=== PATIENT | female | born 1955 | race Caucasian/White ===

== ENCOUNTER 2025-02-02 01:21 | Inpatient (IN) | payer OTHER ==
[2025-02-02] VITALS (9 sets, daily range): BP systolic 108–155; BP diastolic 43–73; PULSE 55–75; RESP 14–19; TEMP 97.9–98.3; O2SAT 95–98
[~2025-02-02] VITALS: Ht 160 cm; Wt 98.3 kg
--- NOTE | 2025-02-02 06:07 | DVHHPRES ---
History of Present Illness Resident Creating Document: IAN AMOS RESIDENT History of Present Illness Patient is a 69-year-old female with past medical history of hypertension, diabetes, GERD, vertigo, cold air induced asthma, nephrolithiasis, who comes in due to syncope. According to the patient, yesterday on 02/01/2025 she had 1 shot of vodka and then took her p.m. medications including labetalol 100 mg, shortly after she was urinating in the bathroom when she got up from the toilet seat she felt dizzy and passed out, hit the back of her head in the bathroom. Per patient she had loss of consciousness for few sec. Denies any prodromal symptoms, notes feeling a headache and nausea after regaining consciousness. Patient notes she had similar symptoms 2-3 years ago but she did not go to the hospital at the time. On review of systems patient is complaining only of rhinorrhea and constipation. Head CT was performed at [facility] which showed no a cute intracranial process and some chronic microvascular ischemic changes. Past Medical History hypertension, diabetes, GERD, vertigo, cold air induced asthma, nephrolithiasis Past Surgical History section x2, hysterectomy, gastric bypass surgery Past Social History Smoking: Denies Alcohol: Occasionally Drugs: Uses marijuana once in a while, denies using any other drugs Allergy: Sulfa drugs, penicillin, erythromycin Review of Systems Constitutional: No: Fever, Chills, Sweats, Weakness, Malaise, Other Eyes: No: Pain, Vision change, Conjunctivae inflammation, Eyelid inflammation, Other, Redness ENT: Nose discharge; No: Ear pain, Ear discharge, Nose pain, Nose congestion, Mouth pain, Mouth swelling, Throat pain, Throat swelling, Other Respiratory: No: Cough, Dry, Shortness of breath, SOB with excertion, Wheezing, Hemoptysis, Pleuritic Pain, Sputum, Wheezing, Other Cardiovascular: No: Chest Pain, Palpitations, Orthopnea, Paroxysmal Noc. Dyspn ea, Edema, Lt Headedness, Other Gastrointestinal: Constipation; No: Nausea, Vomiting, Abdominal Pain, Diarrhea, Melena, Hematochezia, Other Genitourinary: No Dysuria, No Frequency, No Incontinence, No Hematuria, No Retention, No Other Musculoskeletal: No: other, neck pain, shoulder pain, arm pain, back pain, hand pain, leg pain, foot pain Skin: No: Rash, Lesions, Jaundice, Bruising, Other Neurological: No: Weakness, Numbness, Incoordination, Change in speech, Confusion, Seizures, Other Medications Current Medications Medications Dose Ordered Sig/Ish Route Start Time Stop Time Status Last Admin Dose Admin Acetaminophen 325 mg Q4HP PRN PO 02/02/25 04:30 UNV Enoxaparin Sodium 40 mg DAILY SC 02/02/25 10:00 UNV Exam Vital Signs Vital Signs Date Time Temp Pulse Resp B/P (MAP) Pulse Ox O2 Delivery O2 Flow Rate FiO2 02/02/25 05:08 98.3 75 18 126/73 (90) 98 98.3 02/02/25 05:08 Room Air* 0 21 General Appearance: Alert, Oriented X3, Cooperative, No acute distress, Other (Dry mucous membranes) HEENT: Atraumatic, PERRLA, EOMI Respiratory: Normal air movement Cardiovascular: Regular rate, Normal S1, Normal S2 Abdominal: Normal bowel sounds, Soft, No tenderness Extremities: No edema Neuro: Normal speech, Sensation intact Psych/Mental Status: Mental status NL, Mood NL Assessment/Plan Assessment/Plan Syncope, orthostatic versus situational versus secondary to polypharmacy Rule out CVA - head CT at [facility] largely unremarkable except chronic ischemic changes - ordered carotid Doppler - ordered echocardiogram - ordered orthostatic vitals Hypertension Diabetes - ordered Hb A1c - currently holding home antihypertensives (labetalol 100 mg b.i.d., hydrochlorothiazide q.a.m., losartan q.a.m.) as blood pressure on the softer side Constipation, slow transit - Colace 100 mg b.i.d. as needed History of hypothyroidism - ordered serum TSH PUD prophylaxis: protonix 40mg DVT prophylaxis: Levonox 40mg Goals of care: Full code, discussed for >16 minutes on 02/02/2025 Plan discussed with patient Plan discussed with Dr. Salmeron Plan discussed with: Patient, Other (RN) My Orders Orders - IAN AMOS RESIDENT Procedure Category Date Status Time Admit ADMIT 02/02/25 Transmitted 04:18 Allergies LEOPOLDO 02/02/25 In Process 04:18 Code Status CODE 02/02/25 Transmitted 04:18 Acetaminophen Tablet PHA 02/02/25 Logged (Tylenol Tablet) 04:30 Enoxaparin Sodium PHA 02/02/25 Logged (Lovenox) 10:00 Fall Risk Precautions LEOPOLDO 02/02/[address] 04:18 Cardiac DIET 02/02/25 Transmitted Diet-2gna,Lofat,Lochol Breakfast Pt Request For Service PT 02/02/25 Logged 04:18 * Swallow Request ST 02/02/25 Transmitted 04:18 Carotid Duplx W Color US 02/02/25 Logged DOP 04:18 Condition: Unstable LEOPOLDO 02/02/25 In Process 04:18 Notify Md Of Changes LEOPOLDO 02/02/25 In Process From Base 04:18 Electrocardigram EKG 02/02/25 Logged 04:18 Echo 2d Mode Cardiac US 02/02/25 Logged DOP 04:18 Chest Two Views XY 02/02/25 Logged Routine 04:18 Complete Blood Count LAB 02/02/25 Logged 04:18 Comprehensive LAB 02/02/25 Logged Metabolic Panel 04:18 Urinalysis LAB 02/02/25 Logged 04:18 Drug Screen LAB 02/02/25 Logged 04:18 Covid19 Antigen Pamela LAB 02/02/25 Logged Rapid Influenza A&B LAB 02/02/25 Logged 04:18 B-Type Natriuretic LAB 02/02/25 Logged Peptide 04:23 Folate (Folic Acid) LAB 02/02/25 Logged 04:23 Vitamin D, 25-Hydroxy LAB 02/02/25 Logged 04:23 Vitamin B12 LAB 02/02/25 Logged 04:23 Thyroid Stimulating LAB 02/02/25 Logged Hormone 04:23 Hemoglobin A1c LAB 02/02/25 Logged 04:23 Orthostatic Vital ORDERS 02/02/25 Transmitted Signs 04:23 Mrsa Screen MARCELINA 02/02/25 Logged 05:05 Date of Service: Feb 02, 2025 Billing Provider: HIRAM SALMERON MD Common Visit Codes: [id number] INP/OBS CARE (HIGH) IAN AMOS RESIDENT Feb 02, 2025 06:07
[2025-02-02] MEDS ORDERED: DOCUSATE SOD 100 MG CAP PO PRN (06:15)
[2025-02-02 07:04] LABS: Basophils # (auto) 0 10 ^3/uL (0-0.2); Basophils % (auto) 0.3 % (0.0-2.0); Eosinophils # (auto) 0.1 10 ^3/uL (0-0.8); Eosinophils % (auto) 1.8 % (0.0-7.0); Hematocrit 36.9 % (36.0-46.0); Hemoglobin 12.5 g/dL (12.2-16.2); Lymphocytes # (auto) 1.3 10 ^3/uL (0.4-5.4); Lymphocytes % (auto) 18.7 % (10.0-50.0); Mean Corpuscular Hemoglobin 27.4 pg (28.0-32.0); Mean Corpuscular Hgb Conc. 33.9 g/dL (32.0-36.0); Mean Corpuscular Volume 80.8 fL (80.0-100.0); Monocytes # (auto) 0.6 10 ^3/uL (0-1.3); Monocytes % (auto) 8.1 % (0.0-12.0); Neutrophils % (auto) 71.1 % (37.0-80.0); Nucleated Red Blood Cells % 0.1 %; Platelet Count (auto) 167 10^3/uL (140-450); Red Blood Cells 4.57 10^6/uL (4.0-5.20); Red Cell Distribution Width 14.1 % (11.8-14.3)
--- NOTE | 2025-02-02 07:19 | DVH ---
EXAM: XR Chest, 1 View CLINICAL INDICATION: syncope TECHNIQUE: Frontal view of the chest. COMPARISON: None FINDINGS: LUNGS AND PLEURAL SPACES: Unremarkable. No consolidation. No pneumothorax. HEART: Unremarkable. No cardiomegaly. MEDIASTINUM: Unremarkable. Normal mediastinal contour. BONES/JOINTS: Unremarkable. No acute fracture. OTHER FINDINGS: . None. IMPRESSION: No acute cardiopulmonary process.
[2025-02-02 07:21] LABS: Albumin 4.3 g/dL (3.2-4.8); Alkaline Phosphatase 65 U/L (46-116); Anion Gap 9 (5-15); BUN/Creatinine Ratio 16.9 (10.0-20.0); Blood Urea Nitrogen 13 mg/dL (9-23); Carbon Dioxide 26 mmol/L (20-31); Creatine Kinase IFCC 37 U/L (34-145); Total Protein 6.6 g/dL (5.7-8.2)
[2025-02-02 07:22] LABS: Bilirubin, Total 0.6 mg/dL (0.2-1.0); Folate (Folic Acid) 12.55 ng/mL (>5.38)
[2025-02-02 07:23] LABS: Alanine Aminotransferase < 9 U/L (7-40); Aspartate Aminotransferase < 8 U/L (13-40); Calcium 10.8 mg/dL (8.7-10.4); Chloride 97 mmol/L (98-107); Glucose 123 mg/dL (74-106); Potassium 3.5 mmol/L (3.5-5.1); Sodium 132 mmol/L (136-145)
[2025-02-02 07:24] LABS: COVID19 ANTIGEN SOFIA FIA NEGATIVE (NEGATIVE); Rapid Influenza A Negative (Negative); Rapid Influenza B Negative (Negative)
[2025-02-02] MEDS: SODIUM CHLORIDE 0.9% 500 ML IV ONE (07:42)
[2025-02-02] MEDS: ENOXAPARIN SOD 40 MG/0.4 ML SYRINGE SC SCH (09:40)
[2025-02-02] MEDS ORDERED: MECL-90 PO (10:03)
[2025-02-02] MEDS ORDERED: LABE100T7 PO (10:03)
[2025-02-02] MEDS ORDERED: ZOFR4T PO (10:03)
[2025-02-02] MEDS ORDERED: SUCR1SUS26 PO (10:03)
[2025-02-02] MEDS ORDERED: CHOL20007 PO (10:13)
[2025-02-02] MEDS ORDERED: OMEP20TA PO (10:13)
[2025-02-02] MEDS ORDERED: ZINC220C8 PO (10:13)
[2025-02-02] MEDS ORDERED: LEVO200I5 IV (10:13)
[2025-02-02] MEDS ORDERED: SERT-206 PO (10:13)
[2025-02-02] MEDS ORDERED: MONT5CHW12 PO (10:13)
[2025-02-02] MEDS ORDERED: HYDR25TA5 PO (10:13)
[2025-02-02] MEDS ORDERED: LOSA-535 PO (10:13)
--- NOTE | 2025-02-02 12:00 | DVH ---
Carotid Duplex Date: 02/02/2025 10:31 AM Clinical History: syncope Comparison: None Technique: Duplex Doppler evaluation of the extracranial carotid and vertebral arteries including col or Doppler and spectral/pulsed waveform analysis was performed. Findings: Velocities and ratios within normal limits. IMPRESSION: No hemodynamically significant stenosis noted in the right carotid system. No hemodynamically significant stenosis noted in the left carotid system. Reference: Radiology 2003; [id number]
[2025-02-02] MEDS: ACETAMINOPHEN 325 MG TAB PO PRN (13:15)
[2025-02-02] MEDS: SUCRALFATE 1 GM/10 ML ORAL SUSP PO SCH ×2 (13:15→18:07)
[2025-02-02] MEDS ORDERED: ONDANSETRON ODT 4 MG TAB PO SCH (13:45)
--- NOTE | 2025-02-02 14:44 | DVHPNRES ---
Progress Note Date Seen: Feb 02, 2025 Resident Creating Document: PATTI MCCONNELL RESIDENT Medical Necessity Reason Pt with a Central, PICC or Fol: No Subjective Review of Systems Patient is a 69-year-old female with past medical history of hypertension, diabetes, GERD, vertigo, cold air induced asthma, nephrolithiasis, s/p bariatric surgery, referred from [facility] . According to the patient, yesterday on 02/01/2025 she had 1 shot of vodka and then took her p.m. medications including labetalol 100 mg, shortly after she was urinating in the bathroom when she got up from the toilet seat she felt dizzy and passed out, hit the back of her head in the bathroom. Per patient she had loss of consciousness for few sec. Denies any prodromal symptoms, notes feeling a headache and nausea after regaining consciousness. Patient notes she had similar symptoms 2-3 years ago but she did not go to the hospital at the time. On review of systems patient is complaining only of rhinorrhea and constipation. Head CT was performed at [facility] which showed no acute intracranial process and some chronic microvascular ischemic changes. Patient was seen and examined on the bedside. She is alert & oriented x3. complaint of mild lightheadedness and no other active complaint this time. Constitutional: No: Fever, Chills, Sweats, Weakness, Malaise, Other Eyes: No: Pain, Vision change, Conjunctivae inflammation, Eyelid inflammation, Other, Redness ENT: No: Ear pain, Ear discharge, Nose pain, Nose discharge, Nose congestion, Mouth pain, Mouth swelling, Throat pain, Throat swelling, Other Respiratory: Shortness of breath, improving No: Cough, Dry,Wheezing, Hemoptysis, Pleuritic Pain, Sputum, Wheezing, Other Cardiovascular: No: Chest Pain, Palpitations, Orthopnea, Paroxysmal Noc. Dyspnea, Edema, Lt Headedness, Other Gastrointestinal: No: Nausea, Vomiting, Abdominal Pain, Diarrhea, Constipation, Melena, Hematochezia, Other Musculoskeletal: No: other, neck pain, shoulder pain, arm pain, back pain, hand pain, leg pain, foot pain Neurological:; No: Weakness, Numbness, Incoordination, Change in speech, Confusion, Seizures Objective vital signs Vital Sign Date Time Temp Pulse Resp B/P (MAP) Pulse Ox O2 Delivery O2 Flow Rate FiO2 4/29/25 12:36 98.0 55 18 143/62 (89) 95 98.0 129/60 (83) 136/58 (84) 02/02/25 08:20 Room Air* 0 21 Total Intake and Output 02/01/25 02/01/25 02/02/25 15:00 23:00 07:00 Intake Total 100 ml Balance 100 ml medications Current Medications Medications Dose Ordered Sig/Ish Route Start Time Stop Time Status Last Admin Dose Admin Acetaminophen 325 mg Q4HP PRN PO 02/02/25 04:30 02/02/25 13:15 325 MG Enoxaparin Sodium 40 mg DAILY SC 02/02/25 10:00 02/02/25 09:40 40 MG Pantoprazole Sodium 40 mg DAILY@0600 PO 02/03/25 06:00 Docusate Sodium 100 mg BIDPRN PRN PO 02/02/25 06:15 Hydrochlorothiazide 25 mg DAILY PO 02/03/25 10:00 Meclizine HCl 25 mg Q12HP PRN PO 02/02/25 22:00 Ondansetron HCl 8 mg PRN PO 02/02/25 13:45 Hold Sertraline HCl 50 mg DAILY PO 02/03/25 10:00 Sucralfate 1 gm TIDAC PO 02/02/25 17:00 Cholecalciferol 5,000 unit DAILY PO 02/03/25 10:00 Levothyroxine Sodium 150 mcg QAM PO 02/03/25 07:00 Montelukast Sodium 10 mg HS PO 02/02/25 22:00 Zinc Sulfate 220 mg DAILY PO 02/03/25 10:00 Examination Physical examination: General Appearance: Alert, Oriented X3, Cooperative, No acute distress HEENT: Atraumatic, PERRLA, EOMI, Mucous membrane moist/pink Respiratory: Clear to auscultation, Normal air movement Cardiovascular: Regular rate, Normal S1, Normal S2, No murmurs, no chest wall tenderness Abdominal: Normal bowel sounds, Soft, suprapubic tenderness, No hepatosplenomegaly, No masses Extremities: No clubbing, No cyanosis, No edema, Normal pulses, No tenderness/swelling Skin: No rashes, No breakdown, No significant lesion Neuro: Normal speech, Strength at 5/5 X4 ext, Normal tone, Sensation intact, Cranial nerves 3-12 NL, Reflexes 2+ Psych/Mental Status: Mental status NL, Mood NL laboratory and microbiology Laboratory Tests 02/02/25 06:41 Test 02/02/25 06:41 Range/Units Serum Glucose 123 H 74-106 mg/dL Labs and/or images reviewed: Labs reviewed by me, Image(s) reviewed by me Problem List/Assessment/Plan Problem List/Assessment/Plan Assessment and plan: # Syncopal episode likely due to autonomic imbalance # Possible secondary to polypharmacy # Rule out CVA # History of recurrent fall # Hypertensive heart disease - Head CT at [facility] largely unremarkable except chronic ischemic changes - Orthostatic vital negative - Doppler showed no hemodynamically significant stenosis in right and left carotid system - Pending echo - CxR unremarkable - currently holding labetalol 100 mg b.i.d., losartan q.a.m. - Continue hydrochlorothiazide 25 mg p.o. daily - PT evaluation # Chronic hypothyroidism - Levothyroxine 150 mcg at q.a.m. # GERD - Protonix 40 mg p.o. daily and Carafate 1 g p.o. b.i.d. # Slow transit constipation - Colace 100 mg p.o. b.i.d. # History of anxiety/depression - Sertraline 50 mg daily # DVT prophylaxis - Lovenox 40 mg sc daily Goal of care discussed with the patient for 20 minutes full code Plan discussed with Dr. Robles Plan discussed with: Patient, Other (Nurse) My Orders My Orders Orders - PATTI MCCONNELL Procedure Category Date Status Time Urinalysis LAB 02/02/25 Uncollected 08:24 Hydrochlorothiazide PHA 02/03/25 In Process Tablet (Hydrochlorot 10:00 Meclizine Tablet PHA 02/02/25 In Process (Antivert Tablet) 22:00 Ondansetron Po PHA 02/02/25 In Process (Zofran Po) 13:45 Sertraline Hcl PHA 02/03/25 In Process (Zoloft) 10:00 Sucralfate Susp PHA 02/02/25 In Process (Carafate Susp) 17:00 Cholecalciferol PHA 02/03/25 In Process Tablet (Vitamin D3 10:00 Levothyroxine Tablet PHA 02/03/25 In Process (Synthroid Tablet) 07:00 Zinc Sulfate PHA 02/03/25 In Process 10:00 Montelukast Tablet PHA 02/02/25 In Process (Singulair Tablet) 22:00 Addendum Addendum Addendum I was physically present for the cash portions of the service provided to patient by THE RESIDENT. I have reviewed the documentation, discussed the case with resident and agree with the resident's documentation except as noted. Also the patient's clinical case was discussed with the patient's nurse. This medical document was created using an electronic medical record system with computerized dictation system. Although this document has been carefully reviewed, there might still be some phonetic and typographical errors. These areas are purely typographical due to imperfections of the software programs, and do not reflect any compromise in the patient's medical care. Late signature. Date of Service: Feb 02, 2025 Billing Provider: PERLA ROBLES MD Common Visit Codes: [id number] INP/OBS CARE(HIGH) Secondary Visit Codes: [id number] CARE PLAN 30 MINUTES (20 minutes) PATTI MCCONNELL RESIDENT Feb 02, 2025 14:44 PERLA ROBLES MD Feb 03, 2025 08:27
[2025-02-02 21:09] LABS: Urine Bacteria FEW /hpf (None Seen); Urine Blood Negative /uL (Negative); Urine Clarity Clear (Clear); Urine Color Light-Yellow (Yellow); Urine Protein, UAD Negative (Negative); Urine Specific Gravity 1.009 (1.001-1.035); Urine Squamous Epithelial Cell None Seen /hpf (<5); Urine Urobilinogen Normal (Negative); Urine WBC 14 /HPF (0-5)
[2025-02-02 21:10] LABS: Barbiturate Scree,Urine Neg (NEGATIVE)
[2025-02-02 21:31] LABS: Amphetamine Screen, Urine Neg (NEGATIVE); Benzodiazephine Screen, Urine Neg (NEGATIVE); Cannabinoid Screen, Urine Neg (NEGATIVE); Cocaine Screen, Urine Neg (NEGATIVE); Opiate Scree,Urine Neg (NEGATIVE); Phencyclidine Screen, Urine Neg (NEGATIVE)
[2025-02-02] MEDS ORDERED: MECLIZINE HCL 25 MG TAB PO PRN (22:00)
[2025-02-02] MEDS: MONTELUKAST SODIUM 10 MG TAB PO SCH (22:30)
[2025-02-03] VITALS (7 sets, daily range): BP systolic 6–147; BP diastolic 49–66; PULSE 50–66; RESP 15–18; TEMP 98.1–98.5; O2SAT 93–100
[2025-02-03] MEDS: LEVOTHYROXINE SODIUM 50 MCG TAB PO SCH (05:56)
[2025-02-03] MEDS: PANTOPRAZOLE 40 MG TAB PO SCH (05:56)
[2025-02-03 07:37] LABS: Potassium 3.9 mmol/L (3.5-5.1)
[2025-02-03 07:38] LABS: Anion Gap 6 (5-15); Carbon Dioxide 28 mmol/L (20-31)
[2025-02-03 07:43] LABS: BUN/Creatinine Ratio 15.3 (10.0-20.0); Blood Urea Nitrogen 11 mg/dL (9-23); Glucose 98 mg/dL (74-106)
[2025-02-03 07:47] LABS: Calcium 10.5 mg/dL (8.7-10.4); Chloride 98 mmol/L (98-107); Sodium 132 mmol/L (136-145)
[2025-02-03] MEDS: cefTRIAXone 1GM/50ML D5W 50 ML IV SCH (08:22)
[2025-02-03] MEDS: CHOLECALCIFEROL (VITD3) 1,000UNIT=25mCg TAB PO SCH (09:51)
[2025-02-03] MEDS: ZINC SULFATE 220mg CAP or TAB PO SCH (09:51)
[2025-02-03] MEDS: SERTRALINE HCL 50 MG TAB PO SCH (09:51)
[2025-02-03] MEDS ORDERED: hydroCHLOROthiazide 25 MG TAB PO SCH (10:00)
[2025-02-03] MEDS ORDERED: PANTOPRAZOLE 40 MG TAB PO SCH (10:00)
[2025-02-03] MEDS ORDERED: LEVO150T10 PO (10:28)
[2025-02-03] MEDS ORDERED: SIMV20TA20 PO (11:41)
--- NOTE | 2025-02-03 11:43 | DVHDSRES ---
Discharge Summary Date of Admission Resident Creating Document: PATTI MCCONNELL RESIDENT Feb 02, 2025 at 03:35 Date of Discharge: Feb 03, 2025 Admitting Diagnosis Syncopal episode likely due to autonomic imbalance Wounds: No wound was present. Labs/Diagnostic Data: Laboratory Results Test 02/03/25 06:12 02/02/25 20:10 02/02/25 06:41 02/02/25 05:30 Sodium Level 132 mmol/L (136-145) Potassium Level 3.9 mmol/L (3.5-5.1) Chloride Level 98 mmol/L (98-107) Carbon Dioxide Level 28 mmol/L (20-31) Anion Gap 6 (5-15) Blood Urea Nitrogen 11 mg/dL (9-23) Creatinine 0.72 mg/dL (0.550-1.02) Glomerular Filtration Rate Calc 89 mL/min (>90) BUN/Creatinine Ratio 15.3 (10.0-20.0) Serum Glucose 98 mg/dL (74-106) Calcium Level 10.5 mg/dL (8.7-10.4) Urine Color Light-yellow (Yellow) Urine Clarity Clear (Clear) Urine pH 6.0 (5.0-9.0) Urine Specific [place] 1.009 (1.001-1.035) Urine Protein Negative (Negative) Urine Ketones Negative (Negative) Urine Blood Negative /uL (Negative) Urine Nitrite Negative (Negative) Urine Bilirubin Negative (Negative) Urine Urobilinogen Normal mg/dL (Negative) Urine Leukocyte Esterase 2+ /uL (Negative) Urine RBC 1 /hpf (0 - 4) Urine Microscopic WBC 14 /HPF (0-5) Urine Squamous Epithelial Cells None seen /hpf (<5) Urine Bacteria Few /hpf (None Seen) Urine Glucose Normal mg/dL (Normal) Urine Opiates Screen Neg (NEGATIVE) Urine Fentanyl Screen Neg (NEGATIVE) Urine Barbiturates Screen Neg (NEGATIVE) Urine Phencyclidine Screen Neg (NEGATIVE) Urine Amphetamines Screen Neg (NEGATIVE) Urine Benzodiazepines Screen Neg (NEGATIVE) Urine Cocaine Screen Neg (NEGATIVE) Urine Cannabinoids Screen Neg (NEGATIVE) White Blood Count 7.0 10^3/uL (4.4-10.8) Red Blood Count 4.57 10^6/uL (4.0-5.20) Hemoglobin 12.5 g/dL (12.2-16.2) Hematocrit 36.9 % (36.0-46.0) Mean Corpuscular Volume 80.8 fL (80.0-100.0) Mean Corpuscular Hemoglobin 27.4 pg (28.0-32.0) Mean Corpuscular Hemoglobin Concent 33.9 g/dL (32.0-36.0) Red Cell Distribution Width 14.1 % (11.8-14.3) Platelet Count 167 10^3/uL (140-450) Mean Platelet Volume 7.8 fL (6.9-10.8) Neutrophils (%) (Auto) 71.1 % (37.0-80.0) Lymphocytes (%) (Auto) 18.7 % (10.0-50.0) Monocytes (%) (Auto) 8.1 % (0.0-12.0) Eosinophils (%) (Auto) 1.8 % (0.0-7.0) Basophils (%) (Auto) 0.3 % (0.0-2.0) Neutrophils # (Auto) 5.0 10 ^3/uL (1.6-8.6) Lymphocytes # (Auto) 1.3 10 ^3/uL (0.4-5.4) Monocytes # (Auto) 0.6 10 ^3/uL (0-1.3) Eosinophils # (Auto) 0.1 10 ^3/uL (0-0.8) Basophils # (Auto) 0 10 ^3/uL (0-0.2) Nucleated Red Blood Cells 0.1 % Hemoglobin A1c 5.5 % A1C (<5.7) Total Bilirubin 0.6 mg/dL (0.2-1.0) Aspartate Amino Transferase (AST) < 8 U/L (13-40) Alanine Aminotransferase (ALT) < 9 U/L (7-40) Alkaline Phosphatase 65 U/L (46-116) Creatine Kinase 37 U/L (34-145) B-Type Natriuretic Peptide 36.96 pg/mL (0-100) Total Protein 6.6 g/dL (5.7-8.2) Albumin 4.3 g/dL (3.2-4.8) Vitamin B12 Level 261 pg/mL (211-911) Vitamin D 25-Hydroxy 57.5 ng/mL (30.0-100) Folic Acid 12.55 ng/mL (>5.38) Thyroid Stimulating Hormone (TSH) 0.55 uIU/mL (0.55-4.78) Influenza Type A Antigen Negative (Negative) Influenza Type B Antigen Negative (Negative) SARS-CoV-2 Antigen (Rapid) Negative (NEGATIVE) Other Laboratory Tests 02/03/25 06:12 02/02/25 06:41 Brief Hx & Hospital Course: Patient is a 69-year-old female with past medical history of hypertension, diabetes, GERD, vertigo, cold air induced asthma, nephrolithiasis, s/p bariatric surgery, referred from [facility] . According to the patient, yesterday on 02/01/2025 she had 1 shot of vodka and then took her p.m. medications including labetalol 100 mg, shortly after she was urinating in the bathroom when she got up from the toilet seat she felt dizzy and passed out, hit the back of her head in the bathroom. Per patient she had loss of consciousness for few sec. Denies any prodromal symptoms, notes feeling a headache and nausea after regaining consciousness. Patient notes she had similar symptoms 2-3 years ago but she did not go to the hospital at the time. On review of systems patient is complaining only of rhinorrhea and constipation. Head CT was performed at [facility] which showed no acute intracranial process and some chronic microvascular ischemic changes. Hospital course: The patient was presented for an evaluation of syncopal episode that happened earlier in the home likely secondary to polypharmacy. Head CT at [facility] largely unremarkable except chronic ischemic changes ,Orthostatic vital negative and Doppler showed no hemodynamically significant stenosis in right and left carotid system. CXR unremarkable. blood pressure was on the lower side and hold all antihypertensives. discharge plan was discussed with the patient and all questions were answered. Patient is being discharged to home with levothyroxine 150 mcg daily q.a.m. and simvastatin 20 mg q.p.m. for 30 days and advised to resumed home medications except antihypertensives. She was also advised to address PCP to readjust antihypertensives according to the response of blood pressure and follow up with [facility] in 1 week to discuss echo reports. Physical examination on the day of discharge: General Appearance: Alert, Oriented X3, Cooperative, No acute distress HEENT: Atraumatic, PERRLA, EOMI, Mucous membrane moist/pink Respiratory: Clear to auscultation, Normal air movement Cardiovascular: Regular rate, Normal S1, Normal S2, No murmurs, no chest wall tenderness Abdominal: Normal bowel sounds, Soft, suprapubic tenderness, No hepatosplenomegaly, No masses Extremities: No clubbing, No cyanosis, No edema, Normal pulses, No tenderness/swelling Skin: No rashes, No breakdown, No significant lesion Neuro: Normal speech, Strength at 5/5 X4 ext, Normal tone, Sensation intact, Cranial nerves 3-12 NL, Reflexes 2+ Psych/Mental Status: Mental status NL, Mood NL Discussed with Dr. Robles Consults/Reason for consult No consultation was done Operations or Procedures Carotid Duplex Date: 02/02/2025 10:31 AM Clinical History: syncope Comparison: None Technique: Duplex Doppler evaluation of the extracranial carotid and vertebral arteries including color Doppler and spectral/pulsed waveform analysis was performed. Findings: Velocities and ratios within normal limits. IMPRESSION: No hemodynamically significant stenosis noted in the right carotid system. No hemodynamically significant stenosis noted in the left carotid system. EXAM: XR Chest, 1 View CLINICAL INDICATION: syncope TECHNIQUE: Frontal view of the chest. COMPARISON: None FINDINGS: LUNGS AND PLEURAL SPACES: Unremarkable. No consolidation. No pneumothorax. HEART: Unremarkable. No cardiomegaly. MEDIASTINUM: Unremarkable. Normal mediastinal contour. BONES/JOINTS: Unremarkable. No acute fracture. OTHER FINDINGS: . None. IMPRESSION: No acute cardiopulmonary process. Condition at Discharge: Guarded Final Diagnosis/Problems List # Syncopal episode likely due to autonomic imbalance # Possible secondary to polypharmacy # Rule out CVA # History of recurrent fall # Hypertensive heart disease # Chronic hypothyroidism # GERD # Slow transit constipation # History of anxiety/depression Discharge Disposition: Home Discharge Instruct/Medications Diet: Cardiac 2g Na,low cholest Activity: No Restrictions, As Tolerated Follow Up/Referral: Follow up with [facility] clinic in 1 week Medications: Continue home medications except antihypertensives. PCP needs to readjust antihypertensives according to the response of blood pressure. Discharge Statement: "Patient was advised to return to the ER or call 911 if any headaches, dizziness, shortness of breath, chest pain, abdominal pain, bleeding, fevers, or worsening of medical condition. Patient was counseled about treatment plan, medications, possible side effects, patientverbalized understanding. All questions were answered to the best of my ability. This discharge took greater then 30 minutes in planning, reviewing documentation, counseling the patient, and discussing with other team members." ASSESSMENT ASSESSMENT Assessment # Syncopal episode likely due to autonomic imbalance # Possible secondary to polypharmacy # Rule out CVA # History of recurrent fall # Hypertensive heart disease # Chronic hypothyroidism # GERD # Slow transit constipation # History of anxiety/depression Addendum Addendum Addendum I was physically present for the cash portions of the service provided to patient by THE RESIDENT. I have reviewed the documentation, discussed the case with resident and agree with the resident's documentation except as noted. Also the patient's clinical case was discussed with the patient's nurse. This medical document was created using an electronic medical record system with computerized dictation system. Although this document has been carefully reviewed, there might still be some phonetic and typographical errors. These areas are purely typographical due to imperfections of the software programs, and do not reflect any compromise in the patient's medical care. Late signature. Date of Service: Feb 03, 2025 Billing Provider: PERLA ROBLES MD Common Visit Codes: [id number] DISCH DAY >30min PATTI MCCONNELL RESIDENT Feb 03, 2025 11:43 PERLA ROBLES MD February 04, 2025 07:38
--- NOTE | 2025-02-04 11:00 | DVHSR ---
APPROVED REPORT EXAM: Two-dimensional and M-mode echocardiogram with Doppler and color Doppler. Blood Pressure: 126/73 mmHg INDICATION Syncope RISK FACTORS Height: 5'3", Weight: 176 DIMENSIONS LVDd4.8 (3.8-5.7cm)LA (2D)4.6 (1.9-4.0cm)Aortic Root3.1 (2.0-3.7cm) LVDs3.1 (2.5-4.0cm)LA (MM) (1.9-4.0cm)Aortic Cusp Exc1.6 (1.5-2.0cm) EF (%) 65.0 (55-70%)Rt. Atrium4.2 (1.9-4.0cm)Asc. Aorta3.4 cm IVSd0.9 (0.7-1.1cm)RV (D)3.5 (1.8-2.4cm) PWd0.8 (0.7-1.1cm) Mitral Valve MitralMitral Stenosis E wave0.77m/sMV Mean GR.mmHg A wave0.92m/sMV Peak GR.mmHg E/A ratio0.82D MVAcm2 DECEL [id number] 1/2 [place] Aortic Valve Aortic ValveAortic Stenosis V11.23m/Lisette Mean GR.7mmHg V21.70m/Lisette Peak GR.12mmHg LVOT Diameter2.1 (1.8-2.4cm)Doppler AVA2.50cm2 Pulmonic Valve V20.82m/s Tricuspid Valve TR Velocity2.49m/s [id number] Conclusion Technically good study. Sinus rhythm. Concentric LVH with left atrial enlargement. RV enlargement. Mild dilation of the sinuses of Valsal va. Valves appear to be structurally normal. Left ventricular systolic performance is preserved at 60% with normal RV function. Doppler is unremarkable. There is mild tricuspid regurgitation. No pericardial effusion masses or vegetations discernible.
== END 2025-02-03 16:02 | disposition home or self-care (01) | DRG 74 ==
LOC: TELE-WESTW 03:35
PROVIDERS: ADMIT Internal Medicine; ATTEND Internal Medicine
DX: G90.89 Other disorders of autonomic nervous system (principal); K21.9 Gastro-esophageal reflux disease without esophagitis; J45.909 Unspecified asthma, uncomplicated; K59.01 Slow transit constipation; E03.9 Hypothyroidism, unspecified; I11.9 Hypertensive heart disease without heart failure; F41.9 Anxiety disorder, unspecified; F32.A Depression, unspecified; T50.995A Adverse effect of other drugs, medicaments and biological substances, initial encounter; Z79.899 Other long term (current) drug therapy; Z98.84 Bariatric surgery status; Y92.89 Other specified places as the place of occurrence of the external cause
CPT/HCPCS: 36415; 71045; 80048; 80053; 80307; 81001; 82306; 82550; 82607; 82746; 83036; 83880; 84443; 85025; 87081; 87426; 87804; 92610; 93306; 93886; 97110; 97116; 97163; 97530; G0378

== ENCOUNTER 2025-04-29 08:04 | Outpatient (CLI) | payer OTHER ==
[~2025-04-29 08:04] MED LIST: CHOL20007 PO; LEVO150T10 PO; MECL-90 PO; MONT5CHW12 PO; OMEP20TA PO; SERT-206 PO; SIMV20TA20 PO; SUCR1SUS26 PO; ZINC220C8 PO; ZOFR4T PO
[2025-04-29 08:59] LABS: Urine Protein, UAD TRACE (Negative)
[2025-04-29 09:14] LABS: Alanine Aminotransferase 10 U/L (7-40); Albumin 4.8 g/dL (3.2-4.8); Alkaline Phosphatase 74 U/L (46-116); Anion Gap 7 (5-15); BUN/Creatinine Ratio 16.7 (10.0-20.0); Blood Urea Nitrogen 15 mg/dL (9-23); Chloride 104 mmol/L (98-107); Glucose 92 mg/dL (74-106); Magnesium 1.9 mg/dL (1.6-2.6); Potassium 3.8 mmol/L (3.5-5.1); Sodium 142 mmol/L (136-145); Total Protein 7.0 g/dL (5.7-8.2); Triglycerides 99 mg/dL (< 150)
[2025-04-29 09:15] LABS: Bilirubin, Total 0.7 mg/dL (0.2-1.0); Calcium 11.1 mg/dL (8.7-10.4); Carbon Dioxide 31 mmol/L (20-31); Cholesterol 181 mg/dL (< 200); HDL Cholesterol 62 mg/dL (40-59)
[2025-04-29 09:16] LABS: Iron 88.0 ug/dL (50-170)
[2025-04-29 09:18] LABS: Hematocrit 41.0 % (36.0-46.0); Hemoglobin 13.7 g/dL (12.2-16.2); Mean Corpuscular Hemoglobin 27.0 pg (28.0-32.0); Mean Corpuscular Volume 80.7 fL (80.0-100.0); Nucleated Red Blood Cells % 0.1 %; Total Iron Binding Capacity 394.0 ug/dL (250-425)
[2025-04-29 09:23] LABS: Free T3 2.45 pg/mL (2.3-4.2)
[2025-04-29 09:25] LABS: Free T4 (Free Thyroxine) 0.9 ng/dL (0.89-1.76)
[2025-04-29 09:34] LABS: Uric Acid 5.0 mg/dL (3.1-7.8)
== END 2025-04-29 17:00 | disposition home or self-care (01) ==
LOC: LAB 08:04
PROVIDERS: ATTEND Family Medicine
DX: I10 Essential (primary) hypertension (principal); E78.2 Mixed hyperlipidemia; Z71.89 Other specified counseling; Z68.31 Body mass index [BMI] 31.0-31.9, adult
CPT/HCPCS: 36415; 80053; 80061; 81001; 82306; 82607; 83036; 83540; 83550; 83735; 84403; 84439; 84443; 84480; 84481; 84550; 85025; 87086

== ENCOUNTER 2025-08-30 14:24 | Outpatient (CLI) | payer OTHER ==
[2025-08-30 15:16] LABS: Chloride 106 mmol/L (98-107); Potassium 4.5 mmol/L (3.5-5.1); Sodium 144 mmol/L (136-145)
[2025-08-30 15:17] LABS: Anion Gap 7 (5-15)
[2025-08-30 15:18] LABS: Calcium 10.2 mg/dL (8.7-10.4); Carbon Dioxide 31 mmol/L (20-31)
[2025-08-30 15:22] LABS: BUN/Creatinine Ratio 16.4 (10.0-20.0); Blood Urea Nitrogen 12 mg/dL (9-23); Glucose 74 mg/dL (74-106)
[2025-08-30 15:31] LABS: Microalb/Creat Ratio, Urine 30.0
== END 2025-08-30 17:00 | disposition home or self-care (01) ==
LOC: LAB 14:24
PROVIDERS: ATTEND Family Medicine
DX: E11.9 Type 2 diabetes mellitus without complications (principal)
CPT/HCPCS: 36415; 80048; 82043; 82570